=== PATIENT | female | born 1975 | race Caucasian/White ===

== ENCOUNTER 2018-11-24 18:09 | Emergency (ER) | payer SELFPAY ==
[2018-11-24 18:20] VITALS: BMI 30.7
[2018-11-24 18:22] VITALS: O2SAT 100
--- NOTE | 2018-11-24 19:03 | C.PDOC ---
History Of Present Illness 43 yr old female w/ no ppmhx p/w headache, blood tinged sputum, and abdominal pain. Pt notes headache started 6 months ago, throbbing, without radiation, not sudden or worst of life or "thunderclap" like. No activity associated prior to CAMPOS. No fall or trauma. NO neck stiffness or fever. Pt also notes mild nasal congestion x3d. She notes that she has had this headache before and was seen at [facility] and given medications which she doesnt remember the name of which improved the headache. She notes coming in today because she ran out of the medications for the headache and came in today. She denies any FND. She also notes x1 week of intermittent epigastric pain, previously dx as gerd. She notes a burning sensation in her stomach when she eats certain foods. She also notes blood tinged sputum with her nasal congestion over the past couple of days. No hemoptysis or night sweats or recent travel abroad. No body aches or sick contacts. No constipaiton or diarrhea. No dark or bloody stool No enuresis or encoparesis No back pain No urinary complaints No rashes NO SI HI or depression Time Seen by Provider: 11/24/18 19:03 Chief Complaint (Nursing): Headache Past Medical History Vital Signs: Last Vital Signs Temp 99.3 F 11/24/18 18:19 Pulse 58 L 11/24/18 18:19 Resp 20 11/24/18 18:19 BP 142/86 11/24/18 18:19 Pulse Ox 100 11/24/18 18:19 Family History: States: Unknown Family Hx - Social History Hx Tobacco Use: No Hx Alcohol Use: Yes Hx Substance Use: No - Immunization History Hx Tetanus Toxoid Vaccination: No Hx Influenza Vaccination: No Hx Pneumococcal Vaccination: No Review Of Systems Constitutional: Negative for: Fever, Chills, Sweats, Weakness, Malaise Eyes: Negative for: Pain, Vision Change, Conjunctivae Inflammation ENT: Positive for: Nose Congestion. Negative for: Ear Pain, Ear Discharge, Nose Pain, Nose Discharge, Mouth Pain, Mouth Swelling, Throat Pain, Throat Swelling Cardiovascular: Negative for: Chest Pain, Palpitations, Orthopnea, Edema, Light Headedness Respiratory: Positive for: Sputum (blood tinged intermittently). Negative for: Cough, Shortness of Breath, SOB with Excertion, Pleuritic Pain Gastrointestinal: Positive for: Abdominal Pain. Negative for: Nausea, Vomiting, Diarrhea, Constipation, Melena, Hematochezia, Hematemesis Genitourinary: Negative for: Dysuria, Frequency, Hematuria, Vaginal Discharge, Vaginal Bleeding Musculoskeletal: Negative for: Neck Pain, Shoulder Pain, Back Pain, Hand Pain Skin: Negative for: Rash, Lesions Neurological: Negative for: Weakness, Numbness, Incoordination, Confusion, Seizures, Altered Mental Status, Headache Psych: Negative for: Anxiety Physical Exam - Physical Exam Appears: Well, Non-toxic, No Acute Distress Skin: Normal Color, Warm, No Pale, No Rash Head: Atraumatic, Normacephalic, No Swelling, No Abrasion, No Laceration Eye(s): bilateral: Normal Inspection, PERRL, EOMI Ear(s): Bilateral: Normal Nose: Normal, No Flaring, No Discharge, No Epistaxis, No Deformity, No Tenderness, No Septal Hematoma Oral Mucosa: Moist Tongue: Normal Appearing Lips: Normal Appearing Teeth: Normal Dentition Gingiva: Normal Appearing Throat: Normal, No Erythema, No Exudate, No Drooling, No Mass Neck: Normal, Normal ROM, No Midline Cervical Tenderness, Supple, Other (no meningeal signs) Lymphatic: Normal Exam, No Adenopathy Chest: Symmetrical, No Deformity, No Tenderness Cardiovascular: Rhythm Regular, No Friction Rub, No Murmur, No JVD Respiratory: Normal Breath Sounds, No Rales, No Rhonchi, No Stridor, No Wheezing Gastrointestinal/Abdominal: Normal Exam, Soft, No Tenderness, No Organomegaly, No Mass Back: Normal Inspection, No CVA Tenderness, No Vertebral Tenderness, No Decrea sed ROM Extremity: Normal ROM, No Tenderness Extremity: Bilateral: Atraumatic Neurological/Psych: Oriented x3, Normal Speech, Normal Cognition, Normal Cranial Nerves, No Cerebellar Signs, Normal Motor, Normal Sensation Gait: Steady Extremity: Right: No Drift, Left: No Drift ED Course And Treatment - Laboratory Results Result Diagrams: 11/24/18 19:32 11/24/18 19:32 O2 Sat by Pulse Oximetry: 100 Medical Decision Making Medical Decision Makin yr old F p/w headache, epigastric pain, blood tinged sputum. Pt in NAD. CAMPOS likely chronic migraines, has been seen at outpt clinic and given meds w/ good resolution. NO indication of SAH given not sudden, not worst of life and without exertion prior to headache starting. No FND or meningeal signs. Abd non-ttp, epigastric pain w/ hx of gerd w/ out back pain. NO vaginal d/c or rash or trau ma/ Blood tinged sputum likely related to URI. PEnding imaging and labs 2100 labs largely unremarkable pending imaging no appreciate CT abnl on my exam no appreciate Xray abnl on my exam 2144 EK, nsr, no stemi pt in nad, repeat neuro exam unremarkable, remains w/ out meningeal signs no sinus tenderness abdomen now non-ttp pt notes pain fully resolved negative flu, however high clinical suspicion given nasal congestion and body aches, will rx. clear for d/c home with return indications and f/u pt agreeable to plan. Disposition - Disposition Referrals: Erik Gore MD [Staff Provider] - Nick Barrios MD [Staff Provider] - [facility] [Outside] [facility] [Outside] [facility] [Outside] Disposition Time: 21:46 Condition: STABLE Additional Instructions: ALICE TAYLOR, thank you for letting us take care of you today. Your provider was Erick Franklin and you were treated for HEADACHE. The emergency medical care you received today was directed at your acute symptoms. If you were prescr ibed any medication, please fill it and take as directed. It may take several days for your symptoms to resolve. Return to the Emergency Department if your symptoms worsen, do not improve, or if you have any other problems. Please contact your doctor or call one of the physicians/clinics you have been referred to that are listed on the Patient Visit Information form that is included in your discharge packet. Bring any paperwork you were given at discharge with you along with any medications you are taking to your follow up visit. Our treatment cannot replace ongoing medical care by a primary care provider outside of the emergency department. Thank you for allowing the [facility] team to be part of your care today. If you had an X-Ray or CT scan: A Radiologist will review the ED reading if any change in treatment is needed we will contact you. If you had a blood, urine, or wound culture: It will take several days for the results, if any change in treatment is needed we will contact you. If you had an STI test: It will take 48 hours for the results. Please call after 1 week if you have not heard back. Prescriptions: Famotidine [Pepcid] 20 mg PO Q12H PRN 3 Days #6 tab PRN Reason: Dyspepsia Oseltamivir Cap [Tamiflu] 75 mg PO BID 5 Days #10 cap Instructions: Viral Tests, Flu, Adult (DC), Acid Reflux (Gastroesophageal Reflux Disease), Adult (DC), Migraine Headache (DC), Headache, Adult (DC) Forms: [employer] (Spanish) Print Language: DIVEHI - Clinical Impression Clinical Impression: Headache, Migraine, GERD (gastroesophageal reflux disease), Flu-like symptoms
[2018-11-24] MEDS ORDERED: Sodium Chloride 0.9% 1,000 ML IV ONE (19:21)
[2018-11-24 19:36] LABS: BASO % 0.5 % (0.0-2.0); EOS # 0.3 K/uL (0.0-0.7); HEMOGLOBIN 13.6 g/dL (11.0-16.0); LYMPH # 4.1 K/uL (1.0-4.3); LYMPH % 48.3 % (20.0-40.0); MEAN CELL VOLUME 89.8 fL (81.0-99.0); MEAN CORPUSCULAR HEMOGLOBIN 30.4 pg (27.0-31.0); MEAN CORPUSCULAR HGB CONC 33.8 g/dL (33.0-37.0); MEAN PLATELET VOLUME 8.1 fL (7.2-11.7); MONO # 0.6 K/uL (0.0-0.8); MONO % 7.5 % (0.0-10.0); NEUT # 3.4 K/uL (1.8-7.0); NEUT % 40.7 % (50.0-75.0); RBC 4.47 Mil/uL (3.80-5.20); RED CELL DISTRIBUTION WIDTH 13.5 % (11.5-14.5); WHITE BLOOD COUNT 8.4 K/uL (4.8-10.8)
[2018-11-24 19:49] LABS: VENOUS BLOOD GAS BASE EXCESS 3.8 mmol/L (0.0-2.0); VENOUS BLOOD GAS PCO2 46 mmHg (40-60); VENOUS BLOOD GAS PO2 44 mm/Hg (30-55); VENOUS BLOOD PH 7.41 (7.32-7.43)
[2018-11-24 19:52] LABS: ALB/GLOB RATIO 1.4 (1.0-2.1); ALBUMIN 4.4 g/dL (3.5-5.0); ALT/SGPT 51 U/L (9-52); AST/SGOT 36 U/L (14-36); BLOOD UREA NITROGEN 15 mg/dL (7-17); GFR NON-AFRICAN AMERICAN > 60; LIPASE 88 U/L (23-300)
[2018-11-24] MEDS ORDERED: Sodium Chloride 0.9% 1,000 ML ONE (20:29)
[2018-11-24 22:51] VITALS: BP 145/86; PULSE 90; RESP 18; TEMP 98.9
--- NOTE | 2018-11-25 07:52 | CT ---
Date of service: 11/24/2018 PROCEDURE: CT HEAD WITHOUT CONTRAST. HISTORY: le COMPARISON: None available. TECHNIQUE: Axial computed tomography images were obtained through the head/brain without intravenous contrast. Radiation dose: Total exam DLP = 939.52 mGy-cm. This CT exam was performed using one or more of the following dose reduction techniques: Automated exposure control, adjustment of the mA and/or kV according to patient size, and/or use of iterative reconstruction technique. FINDINGS: HEMORRHAGE: No intracranial hemorrhage. BRAIN: No mass effect or edema. There is focal calcification noted at the right posterior parietal lobe which adjacent focal hypodensity noted. Findings may represent sequela of prior infection or inflammatory process. No evidence of mass effect on the adjacent structures. VENTRICLES: Unremarkable. No hydrocephalus. CALVARIUM: Unremarkable. PARANASAL SINUSES: Unremarkable as visualized. No significant inflammatory changes. MASTOID AIR CELLS: Unremarkable as visualized. No inflammatory changes. OTHER FINDINGS: None. IMPRESSION: No evidence of acute intracranial hemorrhage mass effect or midline shift. Focal calcification and hypodensity at the right posterior parietal lobe may represent a sequela of prior infection or inflammatory process versus old trauma. Preliminary report was submitted by [facility] Radiology contains concordant findings.
--- NOTE | 2018-11-25 11:56 | RAD ---
Date of service: 11/24/2018 HISTORY: sputum COMPARISON: No prior. TECHNIQUE: Chest PA and lateral views FINDINGS: LUNGS: No active pulmonary disease. PLEURA: No significant pleural effusion identified. No pneumothorax apparent. CARDIOVASCULAR: No aortic atherosclerotic calcification present. Normal cardiac size. No pulmonary vascular congestion. OSSEOUS STRUCTURES: No significant abnormalities. VISUALIZED UPPER ABDOMEN: Normal. OTHER FINDINGS: None. IMPRESSION: No active disease.
--- NOTE | 2018-11-27 12:22 | CARD ---
APPROVED REPORT Date of service: 11/24/2018 EKG Measurement Heart [id number] <Conclusion> Normal sinus rhythm Normal ECG
== END 2018-11-24 21:55 | disposition home or self-care (01) ==
LOC: C.ER 18:09
DX: G43.909 Migraine, unspecified, not intractable, without status migrainosus (principal); K21.9 Gastro-esophageal reflux disease without esophagitis; J11.1 Influenza due to unidentified influenza virus with other respiratory manifestations
CPT/HCPCS: 70450; 71046; 80053; 82803; 83690; 85025; 87070; 87430; 87804; 93005; 96374; 96375; 99284; J2765; J7030